=== PATIENT | female | born 1965 | race American Indian/Alaskan Native ===

== ENCOUNTER 2017-02-22 15:27 | Emergency (ER) | payer SELFPAY ==
[2017-02-22 17:08] VITALS: BP 138/84
--- NOTE | 2017-02-22 20:30 | Emergency Department Report ---
ED Lower Extremity HPI - General Chief Complaint: Back Pain/Injury Stated Complaint: FOOT PAIN Time Seen by Provider: 02/22/17 19:54 Source: patient Mode of arrival: Ambulatory Limitations: No Limitations - History of Present Illness Initial Comments: 51-year-old female past medical history obesity, sciatica, lower back pain, [place], asthma, hypertension, pituitary tumor, rotator cuff injury, sleep apnea presents with complaint of chronic right heel pain and chronic right buttock pain radiating to leg. Patient denies fevers chills abdominal pain nausea vomiting bladder or bowel incontinence. Patient is ambulatory without assistance. Denies any recent falls or direct trauma. States that due to pain and she feels that her right leg gets weak occasionally. Reports no significant swelling of lower extremities. Denies calf pain. Patient is awake alert and oriented 3 does not appear to be in acute distress. MD Complaint: foot injury Onset/Timin -: week(s) Injury: Foot: Right (right heel) Place: home Severity: moderate Severity scale (0 -10): 6 Worsens With: weight bearing, palpation Associated Symptoms: ambulatory - Related Data Home Medications Medication Instructions Recorded Confirmed Last Taken Cabergoline 0.5 mg PO 2XW 01/23/17 01/23/17 01/20/17 Diclofenac Sodium 75 mg PO PRN 01/23/17 01/23/17 Unknown Divalproex ER [Depakote ER] 500 mg PO QDAY 01/23/17 01/23/17 Unknown Naproxen [Naprosyn TAB] 500 mg PO BID 01/23/17 01/23/17 Unknown Valsartan-Hctz 320-25 mg Tab 1 tab PO DAILY 01/23/17 01/23/17 01/22/17 traZODone [Desyrel] 100 mg PO QHS 01/23/17 01/23/17 01/22/17 Previous Rx's Medication Instructions Recorded Last Taken Type Acetaminophen/Codeine [Tylenol 1 tab PO Q6H PRN #20 tab 06/13/15 Unknown Rx /Codeine # 3 tab] Pantoprazole [Protonix] 40 mg PO QDAY #30 tablet 01/23/17 Unknown Rx Acetaminophen/Codeine [Tylenol 1 tab PO Q6H PRN #6 tab 02/22/17 Unknown Rx /Codeine # 3 tab] Naproxen 500 mg PO BID PRN #20 tablet 02/22/17 Unknown Rx Allergies Allergy/AdvReac Type Severity Reaction Status Date / Time No Known Allergies Allergy Unverified 06/13/15 16:22 ED Review of Systems ROS: Stated complaint: FOOT PAIN Other details as noted in HPI Constitutional: denies: chills, fever Eyes: denies: eye pain, eye discharge, vision change ENT: denies: ear pain, throat pain Respiratory: denies: cough, shortness of breath, wheezing Cardiovascular: denies: chest pain, palpitations Endocrine: no symptoms reported Gastrointestinal: denies: abdominal pain, nausea, diarrhea Genitourinary: denies: urgency, dysuria, discharge Musculoskeletal: as per HPI (chronic lower back pain chronic right heel pain), back pain. denies: joint swelling, arthralgia Skin: denies: rash, lesions Neurological: denies: headache, weakness, paresthesias Psychiatric: denies: anxiety, depression Hematological/Lymphatic: denies: easy bleeding, easy bruising ED Past Medical Hx - Past Medical History Hx Hypertension: Yes Hx Heart Attack/AMI: Yes ("silent heart attack") Hx Asthma: Yes Additional medical history: pituitary tumor. sleep apnea - Surgical History Additional Surgical History: right rotator cuff repair. cerclage - Social History Smoking Status: Never Smoker Substance Use Type: None - Medications Home Medications: Home Medications Medication Instructions Recorded Confirmed Last Taken Type Acetaminophen/Codeine [Tylenol 1 tab PO Q6H PRN #20 tab 06/13/15 01/23/17 Unknown Rx /Codeine # 3 tab] Cabergoline 0.5 mg PO 2XW 01/23/17 01/23/17 01/20/17 History Diclofenac Sodium 75 mg PO PRN 01/23/17 01/23/17 Unknown History Divalproex ER [Depakote ER] 500 mg PO QDAY 01/23/17 01/23/17 Unknown History Naproxen [Naprosyn TAB] 500 mg PO BID 01/23/17 01/23/17 Unknown History Pantoprazole [Protonix] 40 mg PO QDAY #30 tablet 01/23/17 Unknown Rx Valsartan-Hctz 320-25 mg Tab 1 tab PO DAILY 01/23/17 01/23/17 01/22/17 History traZODone [Desyrel] 100 mg PO QHS 11/07/0601/23/17 01/22/17 History Acetaminophen/Codeine [Tylenol 1 tab PO Q6H PRN #6 tab 02/22/17 Unknown Rx /Codeine # 3 tab] Naproxen 500 mg PO BID PRN #20 tablet 02/22/17 Unknown Rx ED Physical Exam - General Limitations: No Limitations General appearance: alert, in no apparent distress - Head Head exam: Present: atraumatic, normocephalic - Eye Eye exam: Present: normal appearance, PERRL, EOMI - ENT ENT exam: Present: mucous membranes moist - Neck Neck exam: Present: normal inspection - Respiratory Respiratory exam: Present: normal lung sounds bilaterally. Absent: respiratory distress - Cardiovascular Cardiovascular Exam: Present: regular rate, normal rhythm. Absent: systolic murmur, diastolic murmur, rubs, gallop - GI/Abdominal GI/Abdominal exam: Present: soft, normal bowel sounds - Extremities Exam Extremities exam: Present: normal inspection - Expanded Lower Extremity Exam Right Hip exam: Present: normal inspection, full ROM Upper Leg exam: Present: normal inspection, full ROM Knee exam: Present: normal inspection, full ROM Lower Leg exam: Present: normal inspection, full ROM Ankle exam: Present: normal inspection, full ROM Foot/Toe exam: Present: normal inspection, full ROM (inversion eversion fully intact plantar and dorsiflexion ankle intact), tenderness (some tenderness at the bottom of the heel over the plantar fascia) Neuro vascular tendon exam: Present: no vascular compromise (distal dorsalis pedis and posterior tibial pulses intact) Gait: Positive: antalgic 1 - Some pain to palpation here - Back Exam Back exam: Present: normal inspection - Neurological Exam Neurological exam: Present: alert, oriented X3, CN II-XII intact, normal gait - Expanded Neurological Exam Expanded Patient oriented to: Present: person, place, time Cranial nerves: EOM's Intact: Normal, Facial Sensation: Normal Cerebellar function: Finger to Nose: Normal, Heel to Sloan: Normal Sensory exam: Upper Extremity Light Touch: Normal, Lower Extremity Light Touch: Normal Motor strength exam: RUE: 5, LUE: 5, RLE: 5, LLE: 5 DTR: knee (R): 3+, knee (L): 3+, ankle (R): 3+, ankle (L): 0 Best Eye Response (Fely): (4) open spontaneously Best Motor Response (Fely): (6) obeys commands Best Verbal Response (Essie): (5) oriented Fely Total: 15 - Psychiatric Psychiatric exam: Present: normal affect, normal mood - Skin Skin exam: Present: warm, dry, intact, normal color. Absent: rash ED Course Vital Signs 02/22/17 17:05 Temperature 98.1 F Pulse Rate 74 Respiratory 18 Rate Blood Pressure 138/84 O2 Sat by Pulse 100 Oximetry ED Lower Extremity MDM - Medical Decision Making A/P: Heel spurs, plantar fasciitis, right sided sciatica 1-naproxen when necessary, short course Tylenol 3 2-I advised patient's to purchase orthotics and wear supportive comfortable footwear, I urged her to see a outside repairer special and referred her http:// [facility]/ 3-no clinical signs of cauda equina. Strength 5/5 bilateral lower extremities and distal reflexes intact good rectal tone no reports of bladder or bowel incontinence 4- I advised patient to follow up with podiatry primary care and outpatient orthopedics for her primary care needs plantar fasciitis and history of chronic back pain and sciatica. Patient ambulatory without assistance. Critical care attestation.: If time is entered above; I have spent that time in minutes in the direct care of this critically ill patient, excluding procedure time. ED Disposition Clinical Impression: Plantar fasciitis of right foot Heel spur Qualifiers: Laterality: right Qualified Code(s): M77.31 - Calcaneal spur, right foot Sciatica Qualifiers: Laterality: right Qualified Code(s): M54.31 - Sciatica, right side Disposition: TO HOME OR SELFCARE Is pt being admited?: No Does the pt Need Aspirin: No Condition: Stable Instructions: Sciatica (ED), Lumbar Radiculopathy (ED), Plantar Fasciitis (ED) Prescriptions: Acetaminophen/Codeine [Tylenol /Codeine # 3 tab] 1 tab PO Q6H PRN #6 tab PRN Reason: Pain Naproxen 500 mg PO BID PRN #20 tablet PRN Reason: Pain Referrals: [facility] [Outside] - 3-5 Days [facility] [Outside] - 3-5 Days [facility] [Provider Group] - 3-5 Days Forms: Work/School Release Form(ED) Time of Disposition: 20:59
[2017-02-22] MEDS ORDERED: NORCO 5/325 PO ONE (20:53)
[2017-02-22] MEDS ORDERED: MOTRIN PO ONE (20:54)
--- NOTE | 2017-02-22 21:48 | XRay Report ---
FINAL REPORT PROCEDURE: XR FOOT 3+V RT TECHNIQUE: RIGHT foot radiographs, AP, lateral, and oblique views. CPT 61129 HISTORY: right heel pain COMPARISON: No prior studies are available for comparison. FINDINGS: Fracture (s) and/or Dislocation(s): None . Alignment: Normal . Joint space(s): Arthritic change at the 1st MTP joint with hallux valgus. Soft tissues: Normal . Bone mineralization: Normal . Foreign bodies: None . Calcaneal spurring: Plantar and dorsal spurs. IMPRESSION: Arthritic change with spurring.
== END 2017-02-22 21:15 | disposition home or self-care (01) ==
LOC: ED 15:27
DX: M72.2 Plantar fascial fibromatosis (principal); M77.51 Other enthesopathy of right foot and ankle; M54.31 Sciatica, right side; I10 Essential (primary) hypertension; I25.2 Old myocardial infarction
CPT/HCPCS: 99283

== ENCOUNTER 2017-07-19 14:06 | Emergency (ER) | payer SELFPAY ==
[2017-07-19] MEDS ORDERED: ASPIRIN PO ONE (14:25)
[2017-07-19 14:51] LABS: Basophils % (Auto) 0.5 % (0.0-1.8); Eosinophils # (Auto) 0.2 K/mm3 (0.0-0.4); Eosinophils % (Auto) 3.5 % (0.0-4.3); Hematocrit 39.9 % (30.3-42.9); Lymphocytes # (Auto) 2.7 K/mm3 (1.2-5.4); Lymphocytes % (Auto) 43.6 % (13.4-35.0); Mean Corpuscular HGB Conc 33 % (30-34); Mean Corpuscular Hemoglobin 31 pg (28-32); Mean Corpuscular Volume 94 fl (79-97); Monocytes # (Auto) 0.5 K/mm3 (0.0-0.8); Monocytes % (Auto) 8.6 % (0.0-7.3); Platelet Count 223 K/mm3 (140-440); Red Blood Count 4.26 M/mm3 (3.65-5.03); Red Cell Distribution Width 13.6 % (13.2-15.2)
--- NOTE | 2017-07-19 14:51 | XRay Report ---
ROUTINE CHEST, TWO VIEWS: HISTORY: Shortness of breath, chest pain. The trachea, heart, mediastinal contour, lung rhoades and bony thorax are unremarkable. IMPRESSION: Unremarkable chest x-ray.
[2017-07-19 15:05] LABS: BUN/Creatinine Ratio 15; Blood Urea Nitrogen 12 mg/dL (7-17); Calcium 8.8 mg/dL (8.4-10.2); Hemolysis Index 3
[2017-07-19] MEDS ORDERED: NACL 0.9% 1000 ML 1,000 ML IV ONE (16:52)
[2017-07-19] MEDS ORDERED: TORADOL IV ONE (16:52)
[2017-07-19] MEDS ORDERED: SUBLIMAZE IV ONE (16:52)
--- NOTE | 2017-07-19 19:13 | Emergency Department Report ---
HPI - General Chief Complaint: Chest Pain Time Seen by Provider: 07/19/17 16:44 - HPI HPI: The patient is a 52-year-old female presents for evaluation of headache and chest pain. The patient reports chest pain since yesterday evening, radiating from the left chest to the right arm, sharp in quality, 8/10 in severity, exacerbated with movement. Her headache has been present since this morning, and has been mild, achy in quality, exacerbated with movement as well. She states that her headache is consistent with previous headache episodes. The patient denies trauma to the head or chest, fever, neck stiffness, paresthesias , lateralizing motor weakness, other focal neurological deficit, hemoptysis, unilateral leg swelling, recent immobilization, history of DVT or PE, hx of recent cancer. ED Past Medical Hx - Past Medical History Hx Hypertension: Yes Hx Heart Attack/AMI: Yes ("silent heart attack") Hx Asthma: Yes Additional medical history: pituitary tumor,vertigo. sleep apnea - Surgical History Additional Surgical History: right rotator cuff repair. cerclage - Social History Smoking Status: Never Smoker Substance Use Type: None - Medications Home Medications: Home Medications Medication Instructions Recorded Confirmed Last Taken Type Simethicone [Gas Relief] 1 - 2 cap PO BID PRN 07/19/17 07/19/17 Unknown History traMADol [Ultram 50 MG tab] 50 mg PO Q6HR PRN #12 tablet 07/19/17 Unknown Rx ED Review of Systems ROS: Stated complaint: CP Other details as noted in HPI Constitutional: denies: fever ENT: denies: throat or neck pain Respiratory: denies: cough, shortness of breath Cardiovascular: reports chest pain Endocrine: denies unexplained weight loss or gain Gastrointestinal: denies: abdominal pain, nausea Genitourinary: denies: dysuria Musculoskeletal: denies: leg swelling Skin: denies: rash Neurological: reports: headache Hematological/Lymphatic: denies: easy bleeding or easy bruising Psych: denies sadness or hopelessness Physical Exam - Physical Exam Vital Signs: Vital Signs 07/19/17 07/19/17 07/19/17 14:22 17:00 18:16 Temperature 98.9 F 98.5 F Pulse Rate 93 H 71 Respiratory 18 12 13 Rate Blood Pressure 177/98 Blood Pressure 166/92 [Right] O2 Sat by Pulse 99 97 Oximetry Physical Exam: General: well-nourished, well-developed, no acute distress Head: Normocephalic, atraumatic Eyes: normal sclera ENT: Mucous membranes are pale and dry Neck: No neck stiffness, no cervical adenopathy Respiratory: Breath sounds equal bilaterally, no wheezing, rales, or rhonchi Cardio: S1 and S2 present, no murmurs, rubs, gallops, capillary refill is delayed Abdomen: Normoactive bowel sounds, soft abdomen, no rigidity, no guarding or rebound tenderness Chest WALL/Back: No tenderness to palpation of the chest wall, no CVA tenderness with percussion Musc: No pitting edema Skin: No rash Neuro: no facial drooping, normal speech Psych: Normal affect ED Course Vital Signs 07/19/17 07/19/17 07/19/17 14:22 17:00 18:16 Temperature 98.9 F 98.5 F Pulse Rate 93 H 71 Respiratory 18 12 13 Rate Blood Pressure 177/98 Blood Pressure 166/92 [Right] O2 Sat by Pulse 99 97 Oximetry ED Medical Decision Making - Lab Data Result diagrams: 07/19/17 14:40 07/19/17 14:40 - Medical Decision Making The patient was seen and examined by myself. The patient is placed on a court recording monitor and continuous pulse ox. On initial evaluation, the patient was found to be in no distress. EKG was negative for findings suggestive of acute cardiac infarct. Labs and imaging are obtained. As there are no neuro deficits or other findings on examination concerning for acute intracranial disease process, and as the patient states that symptoms are consistent with previous headaches, a CAT scan of the head will not be obtained at this time. The patient is given 1 L normal saline fluid bolus for treatment of her dehydration and IV Toradol for treatment of her chest pain and headache. Chest x-ray is negative for pneumothorax, focal consolidation, pulmonary vascular congestion, pleural effusion, or other obvious acute cardiopulmonary disease process. Lab results were non-concerning including levels of troponin, WBC, hemoglobin, hematocrit, electrolytes, renal function. The patient was reevaluated and reported that their symptoms were markedly improved. As the patient has a OSITO risk score less than 2, and a well's score less than 2, the patient is at low risk of ACS or pulmonary emboli etiology of their symptoms. The patient is stable for discharge with outpatient follow-up. The patient is given follow-up and return instructions. The patient expressed understanding and agreed with the plan. The patient is discharged in stable condition. Critical care attestation.: If time is entered above; I have spent that time in minutes in the direct care of this critically ill patient, excluding procedure time. ED Disposition Clinical Impression: Acute chest pain, Acute non intractable tension-type headache, Dehydration, mild Disposition: DC-01 TO HOME OR SELFCARE Is pt being admited?: No Does the pt Need Aspirin: No Condition: Stable Instructions: Chest Pain (ED), Costochondritis (ED), Migraine Headache (ED) Referrals: [facility] [Outside] - 3-5 Days Time of Disposition: 19:11
[2017-07-19 20:13] VITALS: BP 148/73
[2017-07-19] MEDS ORDERED: ASPIRIN ONE (20:16)
== END 2017-07-19 20:30 | disposition home or self-care (01) ==
LOC: ED 14:06
DX: G44.209 Tension-type headache, unspecified, not intractable (principal); R07.89 Other chest pain; E86.0 Dehydration; I10 Essential (primary) hypertension; I25.2 Old myocardial infarction; J45.909 Unspecified asthma, uncomplicated
CPT/HCPCS: 36415; 71046; 80048; 84484; 85025; 93005; 93010; 96361; 96374; 96375; 99284; J1885; J3010; J7030